=== PATIENT | male | born 2000 | race African-American/Black ===

== ENCOUNTER 2025-02-19 09:21 | Emergency (ER) | payer SELFPAY ==
[2025-02-19] VITALS (10 sets, daily range): BP systolic 112–143; BP diastolic 67–86; PULSE 90–120; RESP 16–23; TEMP 38.3–38.7; O2SAT 97–100
--- NOTE | ~2025-02-19 | CT_ITS ---
CT abdomen pelvis w con Clinical History: rlq pain . Comparison: None Technique: Axial images lung bases to symphysis pubis IV contrast information not listed in PACS Coronal, sagittal reformats CT images acquired with automatic exposure control for dose reduction DLP: 203 mGy-cm Findings: Lung bases: Moderate left effusion, bibasilar airspace disease. Visualized heart and pericardium: Unremarkable. Liver: Enlarged. Steatosis. Gallbladder: Unremarkable. Spleen: Unremarkable. Pancreas: Unremarkable. Adrenal glands: Unremarkable. Kidneys: Right kidney- No hydronephrosis. Probable tiny stone. Left kidney- No hydronephrosis. Probable tiny stone. Distal esophagus/stomach: Unremarkable. Small bowel loops: Normal caliber and wall thickness. Colon: Apparent wall thickening descending segment but under distended. Normal RLQ appendix. Nodes: No enlarged nodes. Peritoneum: No ascites. No free air. Urinary bladder: Unremarkable. Prostate: Unremarkable. Small pelvic free fluid. Bones: No acute bony abnormality. Soft tissues: Unremarkable. Aorta: No aneurysm or dissection. IVC: Unremarkable. Main portal vein/SMV/splenic vein: Patent. IMPRESSION: 1. Mild colitis suspected. 2. Bilateral nephrolithiasis. No hydronephrosis. 3. Left basilar pneumonia with moderate effusion. 4. No other acute abnormality. Reviewed, dictated and finalized at location R.
[2025-02-19 09:47] LABS: Hematocrit 41.7 % (42.0-52.0); Hemoglobin 13.7 g/dL (14.0-18.0); Immature Granulocyte Percent A 0.3 % (0-0.5); Lymphocytes Absolute Auto 1.67 K/mm3 (0.9-3.2); Mean Corpuscular HGB Conc 32.9 g/dl (32-36); Mean Corpuscular Hemoglobin 26.8 pg (26-34); Mean Corpuscular Volume 81.4 fl (80-100); Nucleated Red Blood Cells Absolute Auto 0.000 K/mm3 (0.0-0.012); Nucleated Red Blood Cells Perc 0.0 % (0.0-0.2); Platelet Count Result 233 k/mm3 (150-375); Red Blood Count 5.12 M/mm3 (4.6-6.20); White Blood Count 14.4 K/mm3 (4.5-10.0)
[2025-02-19] MEDS: SODIUM CHLORIDE 0.9% IV 1,000 ML 999 ML IV CONT ×2 (09:55→10:01)
[2025-02-19] MEDS: ONDANSETRON INJ 4 MG/2 ML VIAL IV PUSH ×2 (09:56→13:16)
[2025-02-19] MEDS: MORPHINE SULFATE (*CRX) 4 MG/ML INJ IV PUSH (09:58)
[2025-02-19 10:01] LABS: Alanine Aminotransferase 26 U/L (6-50); Albumin Level 4.2 g/dL (3.5-5.1); Alkaline Phosphatase 69 U/L (38-126); Anion Gap 9 mmol/L (4-12); Aspartate Amino Transferase 37 U/L (17-59); Bilirubin,Total 1.2 mg/dL (0.2-1.3); Blood Urea Nitrogen 10 mg/dL (9-20); Calcium 8.9 mg/dL (8.4-10.2); Carbon Dioxide 28 mmol/L (22-30); Chloride 99 mmol/L (98-107); Estimated CRCL calculation 85 ml/min; Estimated Glomerular Filt Rate > 60; Glucose 112 mg/dL (65-110); Lipase 38 U/L (23-300); Potassium 3.8 mmol/L (3.4-5.0); Sodium 136 mmol/L (137-145); Total Protein 7.9 g/dL (6.3-8.2)
--- NOTE | 2025-02-19 10:06 | ED_ITS ---
HPI - Nausea/Vomiting/Diarrhea General Chief complaint: Nausea/Vomiting/Diarrhea Stated complaint: n/v Time Seen by Provider: 02/19/25 09:28 History of Present Illness HPI Narrative: Patient is a 24-year-old male who presents ER with abdominal pain and nausea vomiting. Ongoing for 4 days. No urine output for 2 days. Has pain in his right lower quadrant. He has had diarrhea as well as emesis. No blood in the stool. No known sick contacts. Febrile here. No alleviating factors. Related Data Allergies Allergy/AdvReac Type Severity Reaction Status Date / Time No Known Allergies Allergy Verified 02/19/25 09:29 Review of Systems 2 Review of Systems: All systems reviewed & are unremarkable except as noted in HPI and below Constitutional: Constitutional: Reports no additional constitutional complaints ENT: Reports system reviewed and no additional complaints, except as documented Cardiovascular: Cardiovascular: Reports no additional cardiovascular complaints Respiratory: Respiratory: Reports no additional respiratory complaints Musculoskeletal: Musculoskeletal: Reports no additional musculoskeletal complaints PMFSH Past Medical History Medical History (Updated 02/19/25 @ 14:33 by Jaime Santamaria MD) Healthy adult male Surgical History Surgical History (Updated 02/19/25 @ 10:07 by Jaime Santamaria MD) No pertinent past surgical history Exam 2 Narrative: GENERAL: Fatigued-appearing, well-nourished, and in no acute distress. HEAD: Normocephalic, atraumatic. ENT: Mucous membranes moist. CHEST: Clear to auscultation. No respiratory distress. HEART: Tachycardic and regular. Normal peripheral pulses. ABDOMEN: Soft, mildly tender right lower quadrant without guarding, nondistended. EXTREMITIES: Normal range of motion. No edema. SKIN: Warm, dry, no rash. NEURO: Alert and oriented x3. PSYCH: Normal mood and affect. Course Course Emergency Course: Patient resting comfortably. Able to tolerate p.o.. He has had 2 L IV fluid. Colitis and pneumonia on x-ray. Will be given antibiotics to cover both. Vital Signs Vital signs: Vital Signs Temperature 101.6 F H 02/19/25 09:26 Pulse Rate 105 H 02/19/25 09:26 Respiratory Rate 16 02/19/25 09:26 Blood Pressure 143/84 H 02/19/25 09:26 Pulse Oximetry 99 02/19/25 09:26 Oxygen Delivery Room Air 02/19/25 09:26 Temperature 101 F H 02/19/25 13:16 Pulse Rate 90 02/19/25 13:30 Respiratory Rate 16 02/19/25 13:30 Blood Pressure 124/74 02/19/25 13:30 Pulse Oximetry 97 02/19/25 13:30 Oxygen Delivery Room Air 02/19/25 09:26 MDM - Nausea/Vomiting/Diarrhea Differential Diagnosis Differential diagnosis: Likely gastroenteritis, dehydration and other (SHWETHA, sepsis, appendicitis, electrolyte derangement) Lab Data Attestation: I reviewed the patient's lab results. 02/19/25 09:41 02/19/25 09:41 Labs: Lab Results 02/19/25 02/19/25 02/19/25 Range/Units 09:41 09:43 11:03 WBC 14.4 H (4.5-10.0) K/mm3 RBC 5.12 (4.6-6.20) M/mm3 Hgb 13.7 L (14.0-18.0) g/dL Hct 41.7 L (42.0-52.0) % MCV 81.4 (80-100) fl MCH 26.8 (26-34) pg MCHC 32.9 (32-36) g/dl RDW 13.3 (11.5-14.5) % Plt Count 233 (150-375) k/mm3 MPV 9.2 (7.4-10.4) fl Immature Gran % (Auto) 0.3 (0-0.5) % Neut % (Auto) 70.7 (45.5-73.1) % Lymph % (Auto) 11.6 L (18.3-44.2) % [place] % (Auto) 16.4 H (2.6-8.5) % Eos % (Auto) 0.6 (0-4.4) % Baso % (Auto) 0.4 (0.2-1.2) % Lymph # (Auto) 1.67 (0.9-3.2) K/mm3 [place] # (Auto) 2.4 H (0.1-0.6) K/mm3 Eos # (Auto) 0.1 (0-0.3) K/mm3 Baso # (Auto) 0.1 (0.0-0.1) K/mm3 Abs Immat Gran (auto) 0.05 H (0.00-0.031) K/mm3 Absolute Neuts (auto) 10.1 H (1.3-6.7) K/mm3 Absolute Nucleated RBC 0.000 (0.0-0.012) K/mm3 Nucleated RBC % 0.0 (0.0-0.2) % Sodium 136 L (137-145) mmol/L Potassium 3.8 (3.4-5.0) mmol/L Chloride 99 (98-107) mmol/L Carbon Dioxide 28 (22-30) mmol/L Anion Gap 9 (4-12) mmol/L BUN 10 (9-20) mg/dL Creatinine 1.00 (0.7-1.3) mg/dL Estim Creat Clear Calc 85 ml/min Estimated GFR > 60 (59 - ) Glucose 112 H (65-110) mg/dL Lactic Acid 0.7 (0.7-2.0) mmol/L Calcium 8.9 (8.4-10.2) mg/dL Total Bilirubin 1.2 (0.2-1.3) mg/dL AST 37 (17-59) U/L ALT 26 (6-50) U/L Alkaline Phosphatase 69 (38-126) U/L Total Protein 7.9 (6.3-8.2) g/dL Albumin 4.2 (3.5-5.1) g/dL Lipase 38 (23-300) U/L Urine Color Dark yellow (Yellow) Urine Appearance Cloudy H (Clear) Urine pH 5.5 (5.0-9.0) Ur Specific [place] 1.034 (1.001-1.035) Urine Protein 2+ H (Negative) mg/dL Urine Glucose (UA) Negative (Negative) mg/dL Urine Ketones 4+ H (Negative) mg/dL Ur Blood (Man) Negative (Negative) Urine Nitrate Negative (Negative) Urine Bilirubin 2+ H (Negative) Urine Urobilinogen 2.0 H (<2.0) mg/dL Add Ur Microanalysis Reviewed Leukocyte Esterase Rfl Trace H (Negative) JESSY/UL Urine RBC 6-10 H (0-2) /hpf Urine WBC 0-5 (0-3) /hpf Ur Squamous Epith Cells Occasional (Few) /hpf Urine Bacteria None seen /hpf Urine Casts 3-5 Imaging Data Radiologist's impression: ITS Impressions Abdomen/Pelvis CT 02/19/25 11:24 IMPRESSION: 1. Mild colitis suspected. 2. Bilateral nephrolithiasis. No hydronephrosis. 3. Left basilar pneumonia with moderate effusion. 4. No other acute abnormality. Discharge Plan Discharge Clinical Impression: Colitis, Pneumonia Patient Disposition: Home Condition: Stable Instructions: Antibiotic Form, Bacterial Pneumonia (ED), Colitis (ED) Additional Instructions: Please drink plenty of fluids at home. Return to the emergency department if you develop high fevers, have persistent severe abdominal pain, or have bloody stools or vomit, as these could be signs of a more serious medical emergency. Return to the emergency department if you are unable to keep down liquids because of severe nausea/vomiting. Patient Language: Kenyan Prescriptions: New amoxicillin-pot clavulanate 875-125 mg tablet 1 tablet PO Q8H Qty: 21 0RF ondansetron 4 mg tablet,disintegrating 4 mg PO Q6H PRN (Reason: nausea and vomiting) Qty: 10 0RF Follow-up/Referrals: PHYSICIAN,PRODUCTION FOREMAN [Primary Care Provider, Internal Medicine] Deonna Silveira DO [Physician, Family Practice] - 1 Week
--- NOTE | 2025-02-19 11:05 | PC.NURSE ---
Report given to Cat RN, all questions answered
[2025-02-19 11:19] LABS: Add Urine Microscopic? YES; Appearance Urine Cloudy (Clear); Glucose Urine UA Negative (Negative); Leukocyte Esterase Ur Trace LEU/UL (Negative); Need Manual Microscopic Reviewed; Nitrate Urine Negative (Negative); Specific Grav Ur 1.034 (1.001-1.035)
[2025-02-19] MEDS: ACETAMINOPHEN 325 MG TABLET 650 MG PO (12:19)
== END 2025-02-19 14:45 | disposition home or self-care (01) ==
PROVIDERS: Emergency Provider Emergency Medicine
DX: K52.9 Noninfective gastroenteritis and colitis, unspecified (principal); J18.9 Pneumonia, unspecified organism; N20.0 Calculus of kidney
CPT/HCPCS: 36415; 74177; 80053; 81001; 83605; 83690; 85025; 96361; 96374; 96375; 96376; 99284; A9270; J2270; J2405; J7030; Q9967